=== PATIENT | female | born 2000 ===

== ENCOUNTER 2018-08-16 16:27 | Emergency (ER) | payer OTHER ==
[2018-08-16 18:30] VITALS: BP 151/76; PULSE 78; RESP 18; TEMP 98.2; O2SAT 99
--- NOTE | 2018-08-16 22:25 | ED PDOC ---
HPI: CCC, URI, Sore Throat Time Seen by Provider: 08/16/18 21:12 Chief Complaint (Nursing): Breast Problem History Per: Patient, [employer] Onset/Duration Of Symptoms: Other (years) Location Of Pain: Other (left breast) Associated Symptoms: denies: Fever, Chills Severity: Mild Additional Complaint(s): Pt. reports 1+ year history of intermittent bilateral breast pain L>R. She reports over past 1 month left breast has been hurting almost every day, mostly at night. She also noted some secretion (clear) from left nipple. Mom reports pt. had been seen by a doctor last [place] for same symptoms and had a "test" which showed a cyst in her breast. She denies any personal or family history of breast, uterine or ovarian CA. Past Medical History Reviewed: Historical Data, Nursing Documentation, Vital Signs Vital Signs: Last Vital Signs Temp 98.2 F 08/16/18 18:27 Pulse 78 08/16/18 18:27 Resp 18 08/16/18 18:27 BP 151/76 H 08/16/18 18:27 Pulse Ox 99 08/16/18 18:27 - Medical History PMH: No Chronic Diseases - Family History Family History: States: No Known Family Hx - Home Medications Home Medications: Ambulatory Orders Medication Instructions Recorded Ibuprofen [Motrin Tab] 600 mg PO TID #15 tab 08/16/18 - Allergies Allergies/Adverse Reactions: Allergies Allergy/AdvReac Type Severity Reaction Status Date / Time No Known Allergies Allergy Verified 08/16/18 18:26 Review of Systems Constitutional: Negative for: Fever, Weakness Cardiovascular: Negative for: Chest Pain, Palpitations Gastrointestinal: Negative for: Nausea, Vomiting, Abdominal Pain Genitourinary Female: Negative for: Pelvic Pain Skin: Negative for: Rash, Lesions Physical Exam - Reviewed Vital Signs Reviewed: Yes - Physical Exam Appears: Positive for: Well, No Acute Distress Skin: Positive for: Normal Color, Warm, Dry. Negative for: Rash Eye Exam: Positive for: Normal appearance Neck: Positive for: Normal Cardiovascular/Chest: Positive for: Regular Rate, Rhythm, Other (BREAST EXAM bilaterally: no mass, no localized tenderness, no swelling, no skin changes, no nipple dischare. no axillary lymphadenopathy.) Respiratory: Positive for: Normal Breath Sounds Lymphatic: Negative for: Adenopathy (axillary) Neurologic/Psych: Positive for: Alert - ECG O2 Sat by Pulse Oximetry: 99 Medical Decision Making Medical Decision Making: Exam as above, no infectious process with normal exam in ED. Stressed importance of close f/u as further work up ie imaging may be needed. Pt. and Mom agreeable to plan. Disposition - Clinical Impression Clinical Impression: Pain of breast - Patient ED Disposition Is Patient to be Admitted: No Counseled Patient/Family Regarding: Need For Followup - Disposition Referrals: [facility] [place] [facility] [Outside] Disposition: Routine/Home Disposition Time: 22:29 Condition: STABLE Prescriptions: Ibuprofen [Motrin Tab] 600 mg PO TID #15 tab Instructions: Mastalgia (DC), Common Breast Problems Print Language: CZECH
== END 2018-08-16 22:30 | disposition home or self-care (01) ==
LOC: H.ER 16:27
DX: N64.4 Mastodynia (principal)